=== PATIENT | female | born 1985 | race Hispanic/Latino ===

== ENCOUNTER 2022-03-20 19:27 | Emergency (ER) | payer OTHER ==
[~2022-03-20] VITALS: Ht 165.1 cm; Wt 68.0 kg
[2022-03-20 19:31] VITALS: BP 120/84
[2022-03-20] MEDS ORDERED: DSSL PO (20:23)
== END 2022-03-20 20:35 | disposition home or self-care (01) ==
LOC: EDH 19:27
DX: H61.22 Impacted cerumen, left ear (principal)
CPT/HCPCS: 99282

== ENCOUNTER 2022-03-24 22:19 | Emergency (ER) | payer OTHER ==
[~2022-03-24] VITALS: Ht 165.1 cm; Wt 69.9 kg
[~2022-03-24 22:19] MED LIST: DSSL PO
[2022-03-24 22:21] VITALS: BP 145/93
[2022-03-24] MEDS ORDERED: AMOX1TAB16 PO (23:26)
[2022-03-24] MEDS ORDERED: IBUP-2070 PO (23:26)
[2022-03-24] MEDS ORDERED: IBUPROFEN 600 MG TABLET PO ONE (23:30)
== END 2022-03-24 23:35 | disposition home or self-care (01) ==
LOC: EDH 22:19
DX: T16.2XXA Foreign body in left ear, initial encounter (principal); Z79.1 Long term (current) use of non-steroidal anti-inflammatories (NSAID); X58.XXXA Exposure to other specified factors, initial encounter; Y93.89 Activity, other specified; Y92.89 Other specified places as the place of occurrence of the external cause; Y99.8 Other external cause status
CPT/HCPCS: 69200

== ENCOUNTER 2022-04-09 09:51 | Inpatient (IN) | payer MEDICAID, OTHER ==
[~2022-04-09] VITALS: Ht 165.1 cm; Wt 70.5 kg
[~2022-04-09 09:51] MED LIST changes: +AMOX1TAB16 PO; +IBUP-2070 PO
[2022-04-09 10:23] LABS: BASOPHILS % (AUTO) 0.5 % (0.0-5.0); HEMATOCRIT 41.2 % (36-48); LYMPHOCYTES % (AUTO) 20.5 % (21.0-51.0); MEAN CORPUSCULAR HEMOGLOBIN 31.7 pg (27.0-33.0); MEAN CORPUSCULAR HGB CONC 33.7 g/dL (32.0-36.0); MEAN CORPUSCULAR VOLUME 93.8 fL (79-99); MONOCYTES % (AUTO) 7.7 % (3.0-13.0); PLATELET COUNT (AUTO) 162 K/uL (130-400); RED BLOOD CELL COUNT(AUTO) 4.39 MIL/uL (4.00-5.50); RED CELL DISTRIBUTION WIDTH 14.1 % (11.0-15.5); WHITE BLOOD COUNT (AUTO) 8.6 K/uL (4.8-10.8)
[2022-04-09 10:36] LABS: ALBUMIN 3.2 g/dL (3.5-5.0); CREATININE 0.6 mg/dL (0.5-1.5); TOTAL PROTEIN, SERUM 6.1 g/dL (6.0-8.3)
[2022-04-09] MEDS ORDERED: MORPHINE 4 MG SYG IVP ONE (12:30)
[2022-04-09] MEDS ORDERED: ONDANSETRON 4MG INJ IVP PRN (12:30)
[2022-04-09 12:45] LABS: APPEARANCE,URINE CLEAR (CLEAR); BILIRUBIN,URINE NEGATIVE (NEGATIVE); COLOR,URINE LIGHT-YELLOW (YELLOW); GLUCOSE, URINE (UA) NEGATIVE (NEGATIVE); KETONES,URINE NEGATIVE (NEGATIVE); LEUKOCYTE ESTERASE ,URINE NEGATIVE Leu/uL (NEGATIVE); NITRATE,URINE NEGATIVE (NEGATIVE); OCCULT BLOOD,URINE MODERATE (NEGATIVE); PROTEIN,URINE 20 mg/dL (NEGATIVE); UROBILINOGEN,URINE 0.2 mg/dL (0.2-1.0)
[2022-04-09 12:52] LABS: BACTERIA,URINE RARE /HPF (None Seen); MUCUS,URINE RARE LPF (None Seen); OTHER CASTS, URINE 1 /LPF (None Seen); RBC,URINE 51-100 /HPF (0-1); SQUAMOUS EPITHELIAL CELL,UR MOD /HPF (0-2); WBC,URINE 0-1 /HPF (0-1)
[2022-04-09] MEDS ORDERED: IOHEXOL 350 MG/ML 100ML INFUS..BTL IV ONE ×2 (15:31→15:32)
[2022-04-09] MEDS: LACTATED RINGERS 1000ML 1,000 ML IV SCH (17:45)
[2022-04-09 19:16] LABS: HEMATOCRIT 37.8 % (36-48)
[2022-04-09 21:40] VITALS: BP 153/94
[2022-04-09] MEDS: ACETAMINOPHEN WITH CODEINE 1 TAB TAB PO PRN (21:57)
[2022-04-09 22:58] LABS: HEMATOCRIT 38.3 % (36-48)
[2022-04-10] VITALS: BP 147/87
[2022-04-10] MEDS: LACTATED RINGERS 1000ML 1,000 ML IV SCH (02:45)
[2022-04-10 03:43] VITALS: BP 130/86
[2022-04-10 03:56] LABS: BASOPHILS % (AUTO) 0.4 % (0.0-5.0); HEMATOCRIT 35.9 % (36-48); LYMPHOCYTES % (AUTO) 27.7 % (21.0-51.0); MEAN CORPUSCULAR HEMOGLOBIN 31.6 pg (27.0-33.0); MEAN CORPUSCULAR HGB CONC 34.3 g/dL (32.0-36.0); MEAN CORPUSCULAR VOLUME 92.3 fL (79-99); MONOCYTES % (AUTO) 6.7 % (3.0-13.0); NEUTROPHILS % (AUTO) 62.8 % (40.0-77.0); PLATELET COUNT (AUTO) 151 K/uL (130-400); RED BLOOD CELL COUNT(AUTO) 3.89 MIL/uL (4.00-5.50); RED CELL DISTRIBUTION WIDTH 13.9 % (11.0-15.5); WHITE BLOOD COUNT (AUTO) 9.4 K/uL (4.8-10.8)
[2022-04-10 04:07] LABS: CREATININE 0.7 mg/dL (0.5-1.5); POTASSIUM 5.1 mmol/L (3.5-5.1)
[2022-04-10] MEDS: ACETAMINOPHEN WITH CODEINE 1 TAB TAB PO PRN ×3 (05:11→19:42)
[2022-04-10 07:00] VITALS: BP 131/86
[2022-04-10 07:04] LABS: HEMATOCRIT 36.3 % (36-48)
[2022-04-10 11:00] VITALS: BP 141/86
[2022-04-10 12:05] LABS: HEMATOCRIT 38.5 % (36-48)
[2022-04-10 16:00] VITALS: BP 133/78
[2022-04-10 16:02] LABS: HEMATOCRIT 38.3 % (36-48)
[2022-04-10 18:33] LABS: HEMATOCRIT 38.8 % (36-48)
[2022-04-10 20:00] VITALS: BP 129/72
[2022-04-10 23:17] LABS: HEMATOCRIT 36.3 % (36-48)
[2022-04-11] VITALS: BP 131/88
[2022-04-11] MEDS: ACETAMINOPHEN WITH CODEINE 1 TAB TAB PO PRN ×4 (00:46→20:17)
[2022-04-11 04:00] VITALS: BP 130/70
[2022-04-11 08:00] VITALS: BP 118/71
[2022-04-11 12:00] VITALS: BP 128/69
[2022-04-11 16:00] VITALS: BP 127/83
[2022-04-11 16:28] LABS: HEMATOCRIT 36.6 % (36-48)
[2022-04-11 20:00] VITALS: BP 113/68
[2022-04-12] VITALS: BP 115/64
[2022-04-12] MEDS: ACETAMINOPHEN WITH CODEINE 1 TAB TAB PO PRN ×2 (01:44→13:35)
[2022-04-12 04:00] VITALS: BP 114/74
[2022-04-12 04:57] LABS: HEMATOCRIT 35.2 % (36-48); MEAN CORPUSCULAR HEMOGLOBIN 31.4 pg (27.0-33.0); MEAN CORPUSCULAR HGB CONC 34.4 g/dL (32.0-36.0); MEAN CORPUSCULAR VOLUME 91.4 fL (79-99); RED BLOOD CELL COUNT(AUTO) 3.85 MIL/uL (4.00-5.50); RED CELL DISTRIBUTION WIDTH 13.5 % (11.0-15.5); WHITE BLOOD COUNT (AUTO) 8.6 K/uL (4.8-10.8)
[2022-04-12 05:10] LABS: CREATININE 0.9 mg/dL (0.5-1.5)
[2022-04-12 07:30] VITALS: BP 111/66
[2022-04-12] MEDS ORDERED: IOHEXOL 350 MG/ML 100ML INFUS..BTL IV ONE (10:31)
[2022-04-12 11:00] VITALS: BP 102/69
== END 2022-04-12 16:15 | disposition home or self-care (01) | DRG 234 ==
LOC: EDH 09:51 → EDHIP 09:52 → OBSVTOIN 09:52 → 3BH 21:31
PROVIDERS: ADMIT Student in an Organized Health Care Education/Training Program; ATTEND Student in an Organized Health Care Education/Training Program
PROC: 0DTJ4ZZ Resection of Appendix, Percutaneous Endoscopic Approach (ICD-10-PCS; principal; 2022-04-11)
DX: K37 Unspecified appendicitis (principal); S37.031A Laceration of right kidney, unspecified degree, initial encounter; X58.XXXA Exposure to other specified factors, initial encounter; S61.411A Laceration without foreign body of right hand, initial encounter; Y93.89 Activity, other specified; Y92.89 Other specified places as the place of occurrence of the external cause; Y99.8 Other external cause status; R31.9 Hematuria, unspecified; Z98.82 Breast implant status; S00.81XA Abrasion of other part of head, initial encounter; S10.93XA Contusion of unspecified part of neck, initial encounter; T74.21XA Adult sexual abuse, confirmed, initial encounter; W50.1XXA Accidental kick by another person, initial encounter
CPT/HCPCS: 36415; 71045; 72100; 74177; 74178; 80048; 80053; 81001; 81025; 85014; 85018; 85025; 85027; 86850; 86900; 86901; G0378; J2270; J2405; J7120; Q9967

== ENCOUNTER 2024-12-23 02:40 | Emergency (ER) | payer BC, MEDICAID ==
[~2024-12-23] VITALS: Ht 175.3 cm; Wt 74.8 kg
[2024-12-23 02:51] VITALS: TEMP 98.2
--- NOTE | 2024-12-23 02:55 | ERN ---
ED Note History of Present Illness Stated Complaint: " PANIC ATTACK" Chief Complaint: Anxiety/Panic Attack Time Seen by : 02:48 Dictation: This is a 39-year-old female who presented to the emergency room with complaints of severe anxiety and panic attacks-feeling scared that she would . She was actively vomitings and was severely nauseated. She stated that she has had anxiety for a very long time and she was seen at [facility] and given trazodone which did not help with her anxiety attacks. She has taken [place] equivalent of Xanax 1 mg p.o. as needed off and on. For the past 3-1/2 weeks she has been using alcohol instead of Xanax as she is unable to travel to [place]. She also just started smoking marijuana to sleep at night. 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(which I am assuming could be adrenal gland-unsure if adenoma or pheochromocytoma) Temperature 98 pulse 114 respirations 22 blood pressure 180/134 with a pulse oximetry of 99% on room air Allergies: Coded Allergies: No Known Drug Allergies (Unverified Allergy, Unknown, 03/20/22) Home Meds Active Scripts Promethazine HCl (Promethazine HCl) 12.5 Mg Tablet, 1 TAB PO Q6H for motion sickness for 5 Days, #20 TAB 0 Refills Prov:SAMANTHA NIELSEN MD 12/23/24 Nitrofurantoin Monohyd/M-Cryst (Macrobid 100 mg Capsule) 100 Mg Capsule, 1 CAP PO BID for 7 Days, #14 CAP 0 Refills Prov:SAMANTHA NIELSEN MD 12/23/24 Clonazepam (Clonazepam) 0.5 Mg Tablet, 1 TAB PO [id number] PRN for anxiety for 5 Days, #10 TAB Prov:SAMANTHA NIELSEN MD 12/23/24 Past Medical History Past Medical History: Anxiety Surgical History: Surgical History Other: BREAST IMPLANTS Family History: Negative Social History: Smokers (Cigarettes), Drugs (Marijuana), ETOH, Lives with family RN Note Reviewed/Agreed w/PFSH: Yes Review of System Dictation Constitutional: Negative for fever,chills, and weight loss Eyes: Negative for injury, pain,redness, and discharge ENT: Negative for injury,pain or swelling Cardiovascular: Negative for chest pain, palpitations, and edema Respiratory: Negative for shortness of breath, cough, and wheezing, Abdomen/GI: Negative for abdominal pain, nausea, vomiting, diarrhea, and constipation Back: Negative for injury and pain : Negative for injury, bleeding and discharge MS/Extremity: Negative for injury and deformity Skin: Negative for rash, and discoloration Neuro: Negative for headache, weakness, numbness, tingling, and seizure Psych: Negative for suicide ideation, homicidal ideation, and hallucinations positive for severe panic attack Initial Vital Sign VS Vital Signs Date Time Temp Pulse Resp B/P (MAP) Pulse Ox O2 Delivery O2 Flow Rate FiO2 12/23/24 02:42 98.1 114 22 180/134 99 Room Air 12/23/24 02:51 0 21 Physical Exam Dictation General: awake, alert, NAD very tremulous and actively vomiting, appeared very fidgety and restless Head/Face: Normocephalic, atraumatic Eyes: PERRL, EOMI, vision at baseline ENT: oral cavity clear, TMs clear, no signs of infection Neck: Trachea midline, supple, no nuchal rigidity Cardiovascular: RRR, normal S1/S2, No MRGs, no JVD Respiratory: CTAB, no respiratory distress, No rales or wheezes Abdomen: Soft, non-tender, non-distended, normal bowel sounds, no guarding or rebound. Skin: Warm, dry, normal turgor, no rash MS/Extremity: Pulses equal, no cyanosis, neurovascular intact, FROM Neuro: COAx4, GCS 15, strength 5/5, CN 2-12 intact, normal cerebellar exam, normal gait, Psych: Normal behavior, mood, and affect normal Extremities-trace edema without any palpable cords, Homans sign is negative Results (Laboratory/Radiology) Laboratory/Radiology Laboratory Tests Test 12/23/24 02:50 Urine Color YELLOW (YELLOW) Urine Appearance CLOUDY (CLEAR) H Urine pH 6.0 (5.0-8.0) Urine Specific Devol 1.015 (1.001-1.031) Urine Protein 30 mg/dL (NEGATIVE) H Urine Glucose (UA) NEGATIVE mg/dL (NEGATIVE) Urine Ketones NEGATIVE mg/dL (NEGATIVE) Urine Occult Blood +- (TRACE) (NEGATIVE) H Urine Nitrate 2+ (NEGATIVE) H Urine Bilirubin NEGATIVE mg/dL (NEGATIVE) Urine Urobilinogen 0.2 mg/dL (0.2-1.0) Urine Leukocyte Esterase 500 Angel/uL (NEGATIVE) H Urine RBC 51-100 /HPF (0-1) H Urine WBC TNTC /HPF (0-1) H Urine WBC Clumps (Auto) FEW /HPF (0-1) Urine Squamous Epithelial Cells FEW /HPF (0-2) Urine Bacteria RARE /HPF (None Seen) Urine Hyaline Casts 51-100 /LPF (0-1 /LPF) H Urine Yeast MOD /HPF (None Seen) Urine HCG, Qualitative NEGATIVE (NEGATIVE) Urine Opiates Screen NEGATIVE (NEGATIVE) Urine Barbiturates Screen NEGATIVE (NEGATIVE) Urine Phencyclidine Screen NEGATIVE (NEGATIVE) Urine Amphetamines Screen NEGATIVE (NEGATIVE) Urine Benzodiazepines Screen NEGATIVE (NEGATIVE) Urine Cocaine Screen NEGATIVE (NEGATIVE) Urine Marijuana (THC) Screen POSITIVE (NEGATIVE) H Labs Reviewed?: Yes ED Course ED Course Orders Procedure Category Date Status Time Urinalysis Profile LAB 12/23/24 Complete 02:52 Drug Screen Urine LAB 12/23/24 Complete 02:52 ,Urine Test LAB 12/23/24 Complete 02:53 Ondansetron 4mg Inj PHA 12/23/24 Complete (Zofran 4mg Inj) 03:00 Diazepam 5 Mg/Ml 2 Ml PHA 12/23/24 Complete Syg (Valium 5 Mg/M 03:00 Culture Urine AIRAM 12/23/24 In Process 03:07 Alprazolam 1mg (Xanax PHA 12/23/24 Complete 1mg) 04:00 Promethazine Hcl PHA 12/23/24 Complete (Phenergan) 04:00 Promethazine Hcl PHA 12/23/24 Complete (Phenergan) 03:43 Ceftriaxone 1g Vial PHA 12/23/24 Complete (Rocephine 1g Inj) 05:00 Current Medications Medications (Trade) Dose Ordered Sig/Milka Route PRN Reason Start Time Stop Time Status Last Admin Dose Admin Alprazolam (XANax 1MG) 1 mg ONCE ONCE PO 12/23/24 04:00 12/23/24 04:01 DC 12/23/24 03:45 Ceftriaxone Sodium (ROCEphine 1G INJ) 1 gm ONCE ONCE IVPB 12/23/24 05:00 12/23/24 05:01 DC 12/23/24 05:05 Diazepam (VALium 5 MG/ML 2 ML SYG) 2.5 mg ONCE ONCE IVP 12/23/24 03:00 12/23/24 03:01 DC 12/23/24 03:13 Ondansetron HCl (zoFRAN 4MG INJ) 4 mg ONCE ONCE IVP 12/23/24 03:00 12/23/24 03:01 DC 12/23/24 03:12 Promethazine HCl (Phenergan) 25 mg ONCE ONCE IM 12/23/24 04:00 12/23/24 04:01 DC 12/23/24 03:49 Promethazine HCl (Phenergan) 25 mg STK-MED ONCE IM 12/23/24 03:43 12/23/24 03:44 DC Vital Signs Date Time Temp Pulse Resp B/P (MAP) Pulse Ox O2 Delivery O2 Flow Rate FiO2 12/23/24 05:14 100 18 154/98 98 Room Air* 0 21 12/23/24 02:51 98.2 102 18 170/115 98 Room Air* 0 21 12/23/24 02:42 98.1 114 22 180/134 99 Room Air We will perform diagnostic labs, and administer medications according to the patient's complaint. Once the results are available, will review and personally interpreted the labs to rule out any acute life-threatening emergency the trach require immediate intervention and treatment. I will then re-evaluate the patient after treatment and diagnostic exams have return to determine whether the patient requires any further testing, can safely be discharged home or need further admission to hospital for additional treatment and evaluation. Urinalysis was positive for severe UTI with positive leuko esterase and too numerous to count WBCs. Urine test is negative. UDS is positive for THC. I had a long discussion with the patient and her about possibilities and plan of care 4:00 a.m. patient continued to have vomitings and trial of a dose of Xanax and P henergan 5:00 a.m. patient finally is calm composed smiling and appears very comfortable. I had a long discussion with the patient and her spouse at bedside frequently and updated her that she could have a coexistent psychiatric illness along with substance abuse which maybe a part of herself medicating herself to control her anxiety symptoms. I recommended and gave resources to get a psychiatry follow up janett to be evaluated for anxiety with a OCD or bipolar symptoms and both of them were agreeable. They verbalized full understanding Medical Decision Making MDM MDM: Differential diagnosis: Anxiety, panic, recreational drugs, alcohol or benzodiazepine withdrawal Rationale: Tests considered and ordered secondary to shared decision making include: Previous outside records reviewed: Old ER visits. Risk of complication and/or morbidity or mortality of patient management: None Medications-Per medication reconciliation Need for hospitalization: Patient does not meet criteria for hospitalization. Need for emergency major/minor surgery: No There are no social concerns with this patient. Prescription drug management Prescriptions will include symptomatic care Patient's prior external medical records from other ER visits were reviewed by me as indicated. Prior testing and results from previous visits were reviewed. Prior tests were taken into account with medical decision making and resource utilization, independent historian/historians were used to obtain complete me dical history. I independently interpreted the test that were performed, results were reviewed by me and considered findings on radiology if ordered. Medical management and examination interpretation discussions were had by me with other qualified healthcare professionals as indicated for the patient's care. Problem List Problem List: (1) Panic attacks (2) Cannabis use disorder (3) Alcohol use disorder (4) UTI (urinary tract infection) DX & DISP Disposition: Discharge Departure Impression: Primary Impression: Panic attacks Additional Impressions: Alcohol use disorder, Cannabis use disorder, UTI (ur inary tract infection) Condition: Stable Scripts Promethazine HCl (Promethazine HCl) 12.5 Mg Tablet 1 TAB PO Q6H for motion sickness for 5 Days, #20 TAB 0 Refills Prov: SAMANTHA NIELSEN MD 12/23/24 Nitrofurantoin Monohyd/M-Cryst (Macrobid 100 mg Capsule) 100 Mg Capsule 1 CAP PO BID for 7 Days, #14 CAP 0 Refills Prov: SAMANTHA NIELSEN MD 12/23/24 Clonazepam (Clonazepam) 0.5 Mg Tablet 1 TAB PO [id number] PRN for anxiety for 5 Days, #10 TAB Prov: SAMANTHA NIELSEN MD 12/23/24 Additional Instructions: Patient and the caregiver have been informed of all the diagnostic tests and the imaging conducted during the today's visit to the emergency room and has verbalized understanding of the results I have personally reviewed and interpreted all diagnostic exams performed here in the ER today as well as the vital signs documented by the nursing staff. The patient is now being discharged to home and should follow up with the primary care physician or the specialist as directed by the ER staff. Follow-up with primary care provider in 1 to 2 days. Take medications as directed here in the emergency room. Okay to continue home medications unless otherwise discussed during your visit in the emergency room today. Return to your nearest emergency room if symptoms worsen or if there is no improvement. Call 911 if you need immediate assistance. Take Tylenol or Motrin [id number] as needed and if no contraindications are present. Increase oral hydration. A wound culture or urine culture was ordered here in the emergency room department please follow-up with primary care provider and advise them to get repeat ports from our facility. If you had any Russ wrap/splints that were applied here, please do not remove them until you see your primary care or specialty. Referrals: SELF,REFERRAL (PCP) SAMANTHA NIELSEN MD Dec 23, 2024 02:55
[2024-12-23 03:07] LABS: ADD UA MICROSCOPIC YES; APPEARANCE,URINE CLOUDY (CLEAR); GLUCOSE, URINE (UA) NEGATIVE (NEGATIVE); LEUKOCYTE ESTERASE ,URINE 500 Leu/uL (NEGATIVE); NITRATE,URINE 2+ (NEGATIVE); OCCULT BLOOD,URINE +- (TRACE) (NEGATIVE)
[2024-12-23 03:11] LABS: HYALINE CASTS, URINE 51-100 /LPF (0-1 /LPF); SQUAMOUS EPITHELIAL CELL,UR FEW /HPF (0-2); WBC CLUMP FEW /HPF (0-1); YEAST,URINE BUDDING MOD /HPF (None Seen)
[2024-12-23 03:14] LABS: AMPHET/METH SCREEN,URINE NEGATIVE (NEGATIVE); BARBITURATE SCREEN, URINE NEGATIVE (NEGATIVE); CANNABINOID SCREEN,URINE POSITIVE (NEGATIVE); COCAINE SCREEN,URINE NEGATIVE (NEGATIVE)
--- NOTE | 2024-12-23 03:26 | NUR ---
TRIAGE EDIT TO REFLECT UDS RESULTS
[2024-12-23] MEDS: PROMETHAZINE HCL 25 MG/ML 1ML AMPULE IM ONE ×2 (03:45→03:49)
[2024-12-23] MEDS ORDERED: CLON0.5T4 PO (04:41)
[2024-12-23] MEDS ORDERED: NITR100C4 PO (04:41)
[2024-12-23] MEDS ORDERED: PROM12.513 PO (04:43)
[2024-12-23 05:14] VITALS: BP 154/98; PULSE 100; RESP 18; O2SAT 98
== END 2024-12-23 05:23 | disposition home or self-care (01) ==
LOC: EDH 02:40
DX: F41.0 Panic disorder [episodic paroxysmal anxiety] (principal); F10.90 Alcohol use, unspecified, uncomplicated; F12.90 Cannabis use, unspecified, uncomplicated; N39.0 Urinary tract infection, site not specified; Y90.9 Presence of alcohol in blood, level not specified
CPT/HCPCS: 99284; 96365; 96375; 80305; 87086 ×2; 87186; 81001; 81025; 96372; J2550; J3360; J0696; J2405